=== PATIENT | female | born 1935 | race Caucasian/White ===

== ENCOUNTER 2018-04-16 15:28 | Inpatient (IN) | payer MEDICARE, BC ==
[~2018-04-16] VITALS: Ht 154.9 cm; Wt 58.7 kg
[~2018-04-16 15:28] MED LIST: ALBUTEROL; CALC200V; CHOL100011 PO; DANT50CA; DONE10TA7; ESOM20CA; FORM12CA; GABA300C10; HYDR10TA4; LORA1TAB; MEPE50TA4; MEPE50TA4 PO; METH500T7; METO25TA91; TIOT18CA; TRIA0.2576 PO; ZOLP10TA
--- NOTE | 2018-04-16 15:43 | NUR ---
PT BIBA ; PT STATES "I WOKE UP THIS MORNING AND I HURT FROM MY HEAD DOWN TO MY ASSHOLE", ALSO RIGHT HAND PAIN AND ERYTHEMA PRESENT UPON AWAKENING THIS AM. RT RADIAL PULSE +2. TEMP 102.3 ON ARRIVAL. EDMD LAW AT BEDSIDE TO EVALUATE. PT CONTINUES TO ASK "JUST GIVE ME A SHOT, I WANT DEMEROL." PT IS A&O TO PERSON, PLACE AND SITUATION, HX MEMORY LOSS. NEURO INTACT. ALL MONITORS IN PLACE. MONITORS IN PLACE. CALL LIGHT IN REACH. AWAITING ORDERS AND DISPO AT THIS TIME.
[2018-04-16] MEDS ORDERED: VANCOMYCIN 800 MG in SODIUM CHLORIDE 0.9% 100 ML IV ONE (16:00)
[2018-04-16] MEDS ORDERED: SODIUM CHLORIDE FLUSH 10ML SYR IVF ONE (16:00)
[2018-04-16] MEDS ORDERED: ACETAMINOPHEN 500 MG TABLET PO ONE (16:00)
[2018-04-16] MEDS ORDERED: VANCOMYCIN PER PHARMACY IV ONE (16:00)
[2018-04-16] MEDS ORDERED: PIPERACILLIN/TAZO/PMX 3.375GM 50 ML IVPB ONE (16:00)
[2018-04-16 16:21] LABS: BASOPHILS # (AUTO) 0.02 x10^3/uL (0-0.1); BASOPHILS % (AUTO) 0 % (0-1); EOSINOPHILS % (AUTO) 0 % (1-7); LYMPHOCYTES # (AUTO) 1.28 x10^3/uL (1-3.4); LYMPHOCYTES % (AUTO) 9 % (22-44); MD NO; MEAN CORPUSCULAR HEMOGLOBIN 28.1 pg (27.0-34.8); MEAN CORPUSCULAR HGB CONC 32.4 g/dL (32.4-35.8); MEAN CORPUSCULAR VOLUME 86.9 fL (80-100); MEAN PLATELET VOLUME 8.1 fL (7.4-10.4); MONOCYTES % (AUTO) 7 % (2-9); NEUTROPHILS # (AUTO) 11.42 x10^3/uL (1.8-6.8); NEUTROPHILS % (AUTO) 83 % (42-75); PLATELET COUNT 349 x10^3/uL (130-400); RED BLOOD COUNT 4.61 x10^6/uL (3.82-5.3); RED CELL DISTRIBUTION WIDTH 17.1 % (9.6-15.2)
[2018-04-16 16:27] LABS: MICROSCOPIC AUTO
[2018-04-16 16:32] LABS: INTERNATIONAL NORMALIZED RATIO 1.11 (0.93-1.1); PROTHROMBIN TIME 11.7 Seconds (9.6-11.5)
[2018-04-16] MEDS ORDERED: ACETAMINOPHEN 500 MG TABLET ONE (16:34)
[2018-04-16 16:35] LABS: ALANINE AMINOTRANSFERASE 14 U/L (12-78); CALCIUM 8.4 mg/dL (8.5-10.1); CHLORIDE 109 mmol/L (98-107); CREATININE 1.04 mg/dL (0.55-1.02)
[2018-04-16 16:36] LABS: CULTURE INDICATED? NO
[2018-04-16 16:37] LABS: ALKALINE PHOSPHATASE 91 U/L (45-117); BILIRUBIN,TOTAL 0.5 mg/dL (0.2-1.0); TOTAL PROTEIN 7.3 g/dL (6.4-8.2)
[2018-04-16 16:42] LABS: ANION GAP 8 mmol/L (5-15)
--- NOTE | 2018-04-16 16:44 | NUR ---
pt medicated per emar, tolerated well. iv vanco initiated after blood cx drawn x 2. pt a&o, resps even and unlabored, nadn at this time. pt updated with POC by EDMD Law.
[2018-04-16] MEDS ORDERED: POTASSIUM CHLORIDE 10% 20 MEQ/15 ML UDC PO ONE (17:00)
[2018-04-16] MEDS ORDERED: POTASSIUM CHLORIDE 40 MEQ in SODIUM CHLORIDE 0.9% 500 ML IV ONE (17:00)
--- NOTE | 2018-04-16 17:08 | NUR ---
pharmacy called, per pharmacist anaido and postassium chloride compatible as y site through IV
--- NOTE | 2018-04-16 17:30 | NUR ---
REPORT GIVEN TO RECEIVING NISHI MADRIGAL. PT UNABLE TO RECALL HOME MEDS FOR MED REC AT THIS TIME, RECEIVING NISHI WATTERS.
--- NOTE | 2018-04-16 17:32 | NUR ---
PTS PHARMACY IS NOT OPEN AT THIS TIME, THIS RN UNABLE TO COMPLETE PT'S MED REC.
--- NOTE | 2018-04-16 17:34 | NUR ---
BREAK RN: Pt medicated per APR. Dr. Armando at bedside to evaluate pt for admission.
--- NOTE | 2018-04-16 17:37 | NUR ---
report to break walter benitez pt awaiting transport to [facility] at this time
[2018-04-16] MEDS: SODIUM CHLORIDE 0.9% 1,000 ML IV SCH (17:44)
[2018-04-16] MEDS ORDERED: ACETAMINOPHEN 325 MG TABLET PO PRN (18:00)
[2018-04-16] MEDS ORDERED: TEMAZEPAM 15 MG CAPSULE PO PRN (18:00)
[2018-04-16] MEDS ORDERED: ONDANSETRON 2MG/ML, 2ML IVPush PRN (18:00)
[2018-04-16] MEDS ORDERED: NICOTINE 14MG/24 HR PATCH.TD24 TD SCH (18:00)
[2018-04-16] MEDS: HEPARIN 5,000 UNITS/ML, 1ML SQ SCH (18:45)
[2018-04-16] MEDS ORDERED: AZITHROMYCIN 500 MG in SODIUM CHLORIDE 0.9% 250 ML IV SCH (19:30)
[2018-04-16 20:00] VITALS: BP 94/59
[2018-04-16] MEDS: METOPROLOL TARTRATE 25 MG TABLET PO SCH (21:00)
[2018-04-16 21:42] LABS: RAPID INFLUENZA A Negative (Negative); RAPID INFLUENZA B Negative (Negative)
[2018-04-16] MEDS: CEFTRIAXONE PMX 1GM/50ML 50 ML IV SCH (21:43)
[2018-04-16 22:56] LABS: CLOSTRIDIUM DIFFICILE ANTIGEN NEGATIVE; CLOSTRIDIUM DIFFICILE TOXIN NEGATIVE (Negative)
[2018-04-16] MEDS: POTASSIUM CHLORIDE 40 MEQ in SODIUM CHLORIDE 0.9% 500 ML IV SCH (23:09)
[2018-04-17 00:17] VITALS: BP 102/55
[2018-04-17] MEDS: POTASSIUM CHLORIDE 40 MEQ in SODIUM CHLORIDE 0.9% 500 ML IV SCH (04:11)
[2018-04-17] MEDS: HEPARIN 5,000 UNITS/ML, 1ML SQ SCH ×3 (04:12→20:00)
[2018-04-17 04:30] LABS: BASOPHILS # (AUTO) 0.02 x10^3/uL (0-0.1); BASOPHILS % (AUTO) 0 % (0-1); EOSINOPHILS # (AUTO) 0.09 x10^3/uL (0-0.4); EOSINOPHILS % (AUTO) 1 % (1-7); LYMPHOCYTES # (AUTO) 2.07 x10^3/uL (1-3.4); LYMPHOCYTES % (AUTO) 22 % (22-44); MD NO; MEAN CORPUSCULAR HEMOGLOBIN 28.9 pg (27.0-34.8); MEAN CORPUSCULAR HGB CONC 32.7 g/dL (32.4-35.8); MEAN CORPUSCULAR VOLUME 88.4 fL (80-100); MEAN PLATELET VOLUME 8.2 fL (7.4-10.4); MONOCYTES # (AUTO) 0.97 x10^3/uL (0.2-0.8); MONOCYTES % (AUTO) 11 % (2-9); NEUTROPHILS # (AUTO) 6.13 x10^3/uL (1.8-6.8); NEUTROPHILS % (AUTO) 66 % (42-75); PLATELET COUNT 301 x10^3/uL (130-400); RED BLOOD COUNT 3.98 x10^6/uL (3.82-5.3); RED CELL DISTRIBUTION WIDTH 16.9 % (9.6-15.2)
[2018-04-17 04:38] LABS: ALBUMIN 2.2 g/dL (3.4-5.0); ANION GAP 5 mmol/L (5-15); CALCIUM 7.2 mg/dL (8.5-10.1); CHLORIDE 118 mmol/L (98-107)
[2018-04-17 04:42] LABS: ALANINE AMINOTRANSFERASE 8 U/L (12-78); ALKALINE PHOSPHATASE 75 U/L (45-117); BILIRUBIN,TOTAL 0.5 mg/dL (0.2-1.0); CREATININE 1.35 mg/dL (0.55-1.02); TOTAL PROTEIN 5.5 g/dL (6.4-8.2)
[2018-04-17 07:52] VITALS: BP 144/73
[2018-04-17] MEDS: METOPROLOL TARTRATE 25 MG TABLET PO SCH ×2 (08:10→21:00)
[2018-04-17] MEDS: SODIUM CHLORIDE 0.9% 1,000 ML IV SCH (10:58)
[2018-04-17 12:43] VITALS: BP 154/70
[2018-04-17] MEDS ORDERED: DEXTROSE 5% 1,000 ML IV SCH (17:00)
[2018-04-17] MEDS: POTASSIUM CHLORIDE 20 MEQ TAB.ER.PRT PO SCH ×2 (17:33→19:00)
[2018-04-17] MEDS: CEFTRIAXONE PMX 1GM/50ML 50 ML IV SCH (18:40)
[2018-04-17] MEDS ORDERED: HALOPERIDOL 5 MG/ML IM ONE (20:30)
== END 2018-04-18 04:59 | disposition left against medical advice (07) | DRG 871 ==
LOC: ED 16:01 → EDIP 17:11 → SUATTDRO 17:27 → 4WST 18:24
PROVIDERS: ADMIT Hospitalist; ATTEND Hospitalist
DX: A41.9 Sepsis, unspecified organism (principal); J18.9 Pneumonia, unspecified organism; N17.0 Acute kidney failure with tubular necrosis; L03.113 Cellulitis of right upper limb; E87.0 Hyperosmolality and hypernatremia; J44.0 Chronic obstructive pulmonary disease with (acute) lower respiratory infection; Z53.21 Procedure and treatment not carried out due to patient leaving prior to being seen by health care provider; E87.6 Hypokalemia; F03.90 Unspecified dementia, unspecified severity, without behavioral disturbance, psychotic disturbance, mood disturbance, and anxiety; F17.210 Nicotine dependence, cigarettes, uncomplicated; G25.0 Essential tremor; I10 Essential (primary) hypertension; Z66 Do not resuscitate; Z96.651 Presence of right artificial knee joint; X08.8XXA Exposure to other specified smoke, fire and flames, initial encounter; Y93.89 Activity, other specified; Y92.89 Other specified places as the place of occurrence of the external cause; Y99.8 Other external cause status; G62.9 Polyneuropathy, unspecified
CPT/HCPCS: 36415; 71045; 80053; 81001; 83605; 83735; 84100; 84145; 84443; 85025; 85610; 85730; 87040; 87324; 87400; 93005; 99291; G0378; J0456; J0696; J1644; J2405; J2543; J3370; J3480; J7070; J1630; J7030; J7040; J7050

== ENCOUNTER 2018-10-22 17:07 | Inpatient (IN) | payer BC, MEDICARE ==
[~2018-10-22] VITALS: Ht 154.9 cm; Wt 43.7 kg
[~2018-10-22 17:07] MED LIST changes: +MEPE50TA; +MEPE50TA PO; -MEPE50TA4; -MEPE50TA4 PO
--- NOTE | 2018-10-22 17:38 | NUR ---
PT WHEELED FROM LOBBY TO ROOM. PT PRESENTING FOR GENERALIZED PAIN AND URINARY/BOWEL INCONINENCE X AT LEAST 5 DAYS. PT CONNECTED TO ALL MONITORING, VSS. PT A&OX4 BUT SLOW TO RESPOND TO QUESTIONS, STATES TOOK A SLEEPING PILL PRIOR TO COMING IN. MD TO BEDSIDE FOR ASSESSMENT. AWAITING ORDERS. BROUGHT PT IN BUT HAS GONE HOME FOR THE NIGHT TAKING PT WALLET WITH HIM. CALL LIGHT WITHIN REACH. BLANKET PROVIDED FOR COMFORT.
--- NOTE | 2018-10-22 17:43 | NUR ---
PT POOR HISTORIAN, UNABLE TO TELL THIS RN WHAT MEDS SHE TAKES.
[2018-10-22] MEDS ORDERED: ONDANSETRON 2MG/ML, 2ML IVPush ONE (18:00)
[2018-10-22] MEDS ORDERED: SODIUM CHLORIDE FLUSH 10ML SYR IVF ONE (18:00)
[2018-10-22] MEDS ORDERED: SODIUM CHLORIDE 0.9%, 500ML IVBOLUS ONE (18:00)
--- NOTE | 2018-10-22 18:08 | NUR ---
EKG COMPLETED, MD AWARE. IV PLACED, LABS DRAWN, FLUIDS RUNNING PER APR. PT AWARE OF STRAIGHT CATH UA AND AGREES.
[2018-10-22 18:19] LABS: BASOPHILS # (AUTO) 0.01 x10^3/uL (0-0.1); BASOPHILS % (AUTO) 0 % (0-1); EOSINOPHILS # (AUTO) 0.23 x10^3/uL (0-0.4); EOSINOPHILS % (AUTO) 2 % (1-7); LYMPHOCYTES # (AUTO) 1.05 x10^3/uL (1-3.4); LYMPHOCYTES % (AUTO) 9 % (22-44); MD NO; MEAN CORPUSCULAR HGB CONC 32.7 g/dL (32.4-35.8); MEAN CORPUSCULAR VOLUME 91.8 fL (80-100); MEAN PLATELET VOLUME 7.8 fL (7.4-10.4); MONOCYTES # (AUTO) 0.66 x10^3/uL (0.2-0.8); MONOCYTES % (AUTO) 6 % (2-9); NEUTROPHILS % (AUTO) 83 % (42-75); PLATELET COUNT 357 x10^3/uL (130-400); RED BLOOD COUNT 4.78 x10^6/uL (3.82-5.3); RED CELL DISTRIBUTION WIDTH 16.5 % (9.6-15.2)
--- NOTE | 2018-10-22 18:20 | NUR ---
UA COLLECTED VIA STRAIGHT CATH AND TAKEN TO LAB.
[2018-10-22 18:31] LABS: ALANINE AMINOTRANSFERASE 13 U/L (12-78); ALBUMIN 3.2 g/dL (3.4-5.0); ANION GAP 11 mmol/L (5-15); CALCIUM 9.6 mg/dL (8.5-10.1); CHLORIDE 106 mmol/L (98-107); CREATININE 2.44 mg/dL (0.55-1.02)
[2018-10-22 18:33] LABS: ALKALINE PHOSPHATASE 107 U/L (45-117); BILIRUBIN,TOTAL 0.8 mg/dL (0.2-1.0)
[2018-10-22 18:42] LABS: MICROSCOPIC INDICATED
[2018-10-22 18:49] LABS: CULTURE INDICATED? NO
--- NOTE | 2018-10-22 19:00 | NUR ---
PT PLACED ON BEDPAN WITH NO STOOL OR URINE.
--- NOTE | 2018-10-22 19:13 | NUR ---
HOSPITALIST AT BEDSIDE
--- NOTE | 2018-10-22 19:50 | NUR ---
REPORT GIVEN TO KAYLYNN ALMODOVAR
--- NOTE | 2018-10-22 19:55 | NUR ---
TAKEN TO US
[2018-10-22] MEDS ORDERED: hydrALAzine 20 MG/ML, 1ML IVPush PRN (20:00)
[2018-10-22 20:26] VITALS: BP 109/67
[2018-10-22] MEDS: SODIUM CHLORIDE 0.9% 1,000 ML IV SCH (21:00)
[2018-10-22] MEDS: HEPARIN 5,000 UNITS/ML, 1ML SQ SCH (23:30)
[2018-10-23 00:21] VITALS: BP 120/51
[2018-10-23 01:46] LABS: CLOSTRIDIUM DIFFICILE ANTIGEN NEGATIVE; CLOSTRIDIUM DIFFICILE TOXIN NEGATIVE (Negative)
[2018-10-23 05:34] LABS: BASOPHILS # (AUTO) 0.02 x10^3/uL (0-0.1); BASOPHILS % (AUTO) 0 % (0-1); EOSINOPHILS # (AUTO) 0.27 x10^3/uL (0-0.4); EOSINOPHILS % (AUTO) 3 % (1-7); LYMPHOCYTES # (AUTO) 1.46 x10^3/uL (1-3.4); LYMPHOCYTES % (AUTO) 14 % (22-44); MD NO; MEAN CORPUSCULAR HEMOGLOBIN 30.1 pg (27.0-34.8); MEAN CORPUSCULAR VOLUME 91.3 fL (80-100); MEAN PLATELET VOLUME 7.6 fL (7.4-10.4); MONOCYTES # (AUTO) 0.87 x10^3/uL (0.2-0.8); MONOCYTES % (AUTO) 8 % (2-9); NEUTROPHILS % (AUTO) 75 % (42-75); PLATELET COUNT 343 x10^3/uL (130-400); RED BLOOD COUNT 4.21 x10^6/uL (3.82-5.3); RED CELL DISTRIBUTION WIDTH 16.1 % (9.6-15.2)
[2018-10-23 05:47] LABS: ALBUMIN 2.5 g/dL (3.4-5.0); ANION GAP 7 mmol/L (5-15); CALCIUM 8.6 mg/dL (8.5-10.1); CHLORIDE 115 mmol/L (98-107)
[2018-10-23 05:52] LABS: ALANINE AMINOTRANSFERASE 11 U/L (12-78); ALKALINE PHOSPHATASE 93 U/L (45-117); BILIRUBIN,TOTAL 0.7 mg/dL (0.2-1.0); CREATININE 1.55 mg/dL (0.55-1.02); TOTAL PROTEIN 6.4 g/dL (6.4-8.2)
[2018-10-23] MEDS: SODIUM CHLORIDE 0.9% 1,000 ML IV SCH (06:18)
[2018-10-23] MEDS ORDERED: DEXTROSE 50%, 50ML SYRINGE IVPush PRN (07:00)
[2018-10-23] MEDS ORDERED: POTASSIUM CHLORIDE 20 MEQ in SODIUM CHLORIDE 0.9% 250 ML IV ONE (07:00)
[2018-10-23] MEDS ORDERED: GLUCAGON 1 MG IM PRN (07:00)
[2018-10-23] MEDS ORDERED: DEXTROSE 4 GM TAB.CHEW PO PRN (07:00)
[2018-10-23 08:00] VITALS: BP 101/52
[2018-10-23] MEDS: HEPARIN 5,000 UNITS/ML, 1ML SQ SCH ×2 (08:35→17:18)
[2018-10-23] MEDS: SODIUM CHLORIDE FLUSH 10ML SYR IVF SCH ×2 (08:35→19:49)
[2018-10-23] MEDS: CEFTRIAXONE PMX 1GM/50ML 50 ML IV SCH (10:50)
[2018-10-23] MEDS: METRONIDAZOLE PMX 500MG/100ML 100 ML IV SCH ×2 (11:59→19:49)
[2018-10-23 14:48] VITALS: BP 111/64
[2018-10-23] MEDS: D5%-0.45NACL+KCL 20MEQ 1,000 ML IV SCH (15:22)
[2018-10-23 19:13] VITALS: BP 123/72
[2018-10-23] MEDS: ACETAMINOPHEN 325 MG TABLET PO PRN (19:49)
[2018-10-24] MEDS: HEPARIN 5,000 UNITS/ML, 1ML SQ SCH ×3 (01:24→16:59)
[2018-10-24 01:55] VITALS: BP 105/87
[2018-10-24] MEDS: D5%-0.45NACL+KCL 20MEQ 1,000 ML IV SCH (04:02)
[2018-10-24] MEDS: METRONIDAZOLE PMX 500MG/100ML 100 ML IV SCH ×3 (04:02→20:11)
[2018-10-24] MEDS: ACETAMINOPHEN 325 MG TABLET PO PRN ×4 (04:03→22:33)
[2018-10-24 07:07] LABS: ANION GAP 5 mmol/L (5-15); BASOPHILS # (AUTO) 0.02 x10^3/uL (0-0.1); BASOPHILS % (AUTO) 0 % (0-1); CALCIUM 8.3 mg/dL (8.5-10.1); CHLORIDE 116 mmol/L (98-107); CREATININE 1.05 mg/dL (0.55-1.02); EOSINOPHILS # (AUTO) 0.26 x10^3/uL (0-0.4); EOSINOPHILS % (AUTO) 3 % (1-7); LYMPHOCYTES # (AUTO) 1.21 x10^3/uL (1-3.4); LYMPHOCYTES % (AUTO) 15 % (22-44); MD NO; MEAN CORPUSCULAR HEMOGLOBIN 29.1 pg (27.0-34.8); MEAN CORPUSCULAR HGB CONC 31.9 g/dL (32.4-35.8); MEAN PLATELET VOLUME 7.6 fL (7.4-10.4); MONOCYTES # (AUTO) 0.76 x10^3/uL (0.2-0.8); MONOCYTES % (AUTO) 9 % (2-9); NEUTROPHILS # (AUTO) 5.98 x10^3/uL (1.8-6.8); NEUTROPHILS % (AUTO) 73 % (42-75); PLATELET COUNT 354 x10^3/uL (130-400); RED BLOOD COUNT 3.87 x10^6/uL (3.82-5.3); RED CELL DISTRIBUTION WIDTH 16.6 % (9.6-15.2)
[2018-10-24 07:21] VITALS: BP 103/52
[2018-10-24] MEDS: LOPERAMIDE 2 MG CAPSULE PO PRN ×2 (07:27→15:41)
[2018-10-24] MEDS: SODIUM CHLORIDE FLUSH 10ML SYR IVF SCH ×2 (08:31→20:11)
[2018-10-24] MEDS: CEFTRIAXONE PMX 1GM/50ML 50 ML IV SCH (10:41)
[2018-10-24 13:18] VITALS: BP 97/61
[2018-10-24 20:40] VITALS: BP 136/68
[2018-10-25 00:22] VITALS: BP 148/73
[2018-10-25] MEDS: HEPARIN 5,000 UNITS/ML, 1ML SQ SCH ×2 (00:51→08:16)
[2018-10-25] MEDS: METRONIDAZOLE PMX 500MG/100ML 100 ML IV SCH (04:24)
[2018-10-25 05:24] LABS: BASOPHILS # (AUTO) 0.04 x10^3/uL (0-0.1); BASOPHILS % (AUTO) 1 % (0-1); EOSINOPHILS # (AUTO) 0.32 x10^3/uL (0-0.4); EOSINOPHILS % (AUTO) 4 % (1-7); LYMPHOCYTES % (AUTO) 17 % (22-44); MD NO; MEAN CORPUSCULAR HEMOGLOBIN 30.1 pg (27.0-34.8); MEAN CORPUSCULAR HGB CONC 32.5 g/dL (32.4-35.8); MEAN CORPUSCULAR VOLUME 92.6 fL (80-100); MEAN PLATELET VOLUME 7.6 fL (7.4-10.4); MONOCYTES # (AUTO) 0.57 x10^3/uL (0.2-0.8); MONOCYTES % (AUTO) 8 % (2-9); NEUTROPHILS # (AUTO) 5.39 x10^3/uL (1.8-6.8); NEUTROPHILS % (AUTO) 71 % (42-75); PLATELET COUNT 387 x10^3/uL (130-400); RED BLOOD COUNT 3.95 x10^6/uL (3.82-5.3); RED CELL DISTRIBUTION WIDTH 16.9 % (9.6-15.2)
[2018-10-25 05:38] LABS: ANION GAP 6 mmol/L (5-15); CALCIUM 8.5 mg/dL (8.5-10.1); CHLORIDE 117 mmol/L (98-107)
[2018-10-25 05:40] LABS: CREATININE 0.91 mg/dL (0.55-1.02)
[2018-10-25 08:10] VITALS: BP 122/69
[2018-10-25] MEDS: SODIUM CHLORIDE FLUSH 10ML SYR IVF SCH (08:17)
[2018-10-25] MEDS ORDERED: metroNIDAZOLE 500 MG TABLET PO SCH (09:00)
[2018-10-25] MEDS ORDERED: METR-90 PO ×2 (09:38)
[2018-10-25] MEDS ORDERED: CEPH-376 PO ×2 (09:38)
[2018-10-25] MEDS ORDERED: CEPHALEXIN 500 MG CAPSULE PO SCH (11:00)
[2018-11-18] MEDS ORDERED: DOXY100T PO (10:59)
[2018-11-18] MEDS ORDERED: AMOX1TAB64 PO (10:59)
== END 2018-10-25 12:00 | disposition home health service (06) | DRG 371 ==
LOC: ED 18:59 → EDIP 19:00 → 4NOR 20:26 → 4NE 10-25 08:11 → DCLOUNGE 10-25 11:50
PROVIDERS: ADMIT Family Medicine; ATTEND Family Medicine
PROC: 0T9B70Z Drainage of Bladder with Drainage Device, Via Natural or Artificial Opening (ICD-10-PCS; principal; 2018-10-22)
DX: A04.9 Bacterial intestinal infection, unspecified (principal); N17.0 Acute kidney failure with tubular necrosis; E44.0 Moderate protein-calorie malnutrition; E87.2 Acidosis; E86.0 Dehydration; E16.2 Hypoglycemia, unspecified; E87.6 Hypokalemia; G25.0 Essential tremor; G62.9 Polyneuropathy, unspecified; F17.200 Nicotine dependence, unspecified, uncomplicated; I10 Essential (primary) hypertension; J44.9 Chronic obstructive pulmonary disease, unspecified; R32 Unspecified urinary incontinence; R62.7 Adult failure to thrive; Z87.01 Personal history of pneumonia (recurrent)
CPT/HCPCS: 36415; 76770; 80048; 80053; 81001; 82962; 83605; 83690; 83735; 84100; 85025; 87040; 87046; 87324; 87427; 89055; 93005; 99285; G0378; J0696; J1644; J3480; J7030; J7040; J7050